=== PATIENT | female | born 1995 | race Caucasian/White ===

== ENCOUNTER 2019-06-05 09:46 | Observation (INO) | payer OTHER ==
[2019-06-05] MEDS ORDERED: NORMAL SALINE 1000 ML 1,000 ML IV ONE ×2 (10:10→11:47)
[2019-06-05] MEDS ORDERED: ACETAMINOPHEN 325 MG TABLET PO ONE (10:10)
[2019-06-05] MEDS ORDERED: ONDANSETRON HCL INJ/PF 4 MG/2 ML SDV IV ONE (10:11)
--- NOTE | 2019-06-05 10:14 | ER Document Report ---
ED Medical Screen (RME) - General Chief Complaint: Flu Symptoms Stated Complaint: FLU LIKE SYMPTOMS Time Seen by Provider: 06/05/19 10:06 Notes: HPI: 23-year-old female presenting to the emergency department for evaluation of flulike symptoms that began 4 days ago. Has had consistent fevers above 101. Reports nasal congestion and cough that is mildly productive had an episode of vomiting today. Patient states she feels generally weak with generalized myalgia and feels "like I am going to pass out". No chest pain. No shortness of breath. No abdominal pain. No dysuria. I have greeted and performed a rapid initial assessment of this patient. A comprehensive ED assessment and evaluation of the patient, analysis of test results and completion of the medical decision making process will be conducted by additional ED providers PHYSICAL EXAMINATION: GENERAL: Slightly ill-appearing, well-nourished and in no acute distress. HEAD: Atraumatic, normocephalic. EYES: sclera anicteric, conjunctiva are normal. ENT: Moist mucous membranes. No pharyngeal erythema NECK: Normal range of motion LUNGS: Normal work of breathing, lung sounds are clear to auscultation HEART: 2+ radial pulses bilaterally, mild tachycardia ABD: limited by positioning for exam in triage. EXTREMITIES: no pitting or edema. No cyanosis. NEUROLOGICAL: No focal neurological deficits. Moves all extremities spontaneously and on command. PSYCH: Normal mood, normal affect. SKIN: Warm, pale, normal turgor, no rashes or lesions noted. TRAVEL OUTSIDE OF THE [place] IN LAST 30 DAYS: No - Related Data Allergies/Adverse Reactions: cephalexin [From Keflex] Allergy (Verified 06/05/19 10:06) Cephalosporins Allergy (Verified 06/05/19 10:06) Penicillins Allergy (Verified 06/05/19 10:06) Physical Exam - Vital signs Vitals: Temp Pulse Resp BP Pulse Ox 100.9 F H 120 H 22 H 136/75 H 97 06/05/19 09:57 06/05/19 09:57 06/05/19 09:57 06/05/19 09:57 06/05/19 09:57 Course - Vital Signs Vital signs: Temp Pulse Resp BP Pulse Ox 100.9 F H 120 H 22 H 136/75 H 97 06/05/19 09:57 06/05/19 09:57 06/05/19 09:57 06/05/19 09:57 06/05/19 09:57
--- NOTE | 2019-06-05 10:48 | RADIOLOGY REPORT (SQ) ---
EXAM DESCRIPTION: CHEST 2 VIEWS COMPLETED DATE/TIME: 06/05/2019 10:40 am REASON FOR STUDY: cough COMPARISON: None. EXAM PARAMETERS: NUMBER OF VIEWS: two views TECHNIQUE: Digital Frontal and Lateral radiographic views of the chest acquired. RADIATION DOSE: NA LIMITATIONS: none FINDINGS: LUNGS AND PLEURA: Hazy opacification of the left upper lobe with associated air bronchogra ms. No pleural effusion or pneumothorax. MEDIASTINUM AND HILAR STRUCTURES: No masses or contour abnormalities. HEART AND VASCULAR STRUCTURES: Heart normal size. No evidence for failure. BONES: No acute findings. HARDWARE: None in the chest. OTHER: No other significant finding. IMPRESSION: Left upper lobe pneumonia. No significant effusion. TECHNICAL DOCUMENTATION: JOB ID: [id number] [employer]- All Rights Reserved Reading location - IP/workstation name: [email or web address]
[2019-06-05 11:01] LABS: A TYPE INFLUENZA AG NEGATIVE (NEGATIVE); B INFLUENZA AG NEGATIVE (NEGATIVE)
[2019-06-05 11:25] LABS: ABSOLUTE LYMPHOCYTES (AUTO) 1.1 10^3/uL (0.5-4.7); ABSOLUTE MONOCYTES (AUTO) 0.6 10^3/uL (0.1-1.4); ABSOLUTE NEUT (AUTO) 5.1 10^3/uL (1.7-8.2); BASOPHILS % (AUTO) 0.4 % (0-2); HEMATOCRIT 34.3 % (36.0-47.0); HEMOGLOBIN 11.7 g/dL (12.0-15.5); LYMPHOCYTES % (AUTO) 15.9 % (13-45); MEAN CORPUSCULAR HEMOGLOBIN 27.4 pg (27.0-33.4); MEAN CORPUSCULAR HGB CONC 34.3 g/dL (32.0-36.0); MEAN CORPUSCULAR VOLUME 80 fl (80-97); PLATELET COUNT 192 10^3/uL (150-450); RED BLOOD COUNT 4.28 10^6/uL (3.72-5.28); RED CELL DISTRIBUTION WIDTH 12.7 % (11.5-14.0); SEGMENTED NEUTROPHILS % (AUTO) 74.7 % (42-78); TOTAL CELLS COUNTED % (AUTO) 100 %; WHITE BLOOD COUNT 6.8 10^3/uL (4.0-10.5)
[2019-06-05] MEDS ORDERED: LEVOFLOXACIN 750 MG/D5W RTU 750 MG/150 ML RTUPB IV ONE (11:46)
[2019-06-05 11:51] LABS: ALBUMIN 4.2 g/dL (3.5-5.0); ALKALINE PHOSPHATASE 73 U/L (38-126); ANION GAP 15 (5-19); ASPARTATE AMINO TRANSFERASE 28 U/L (14-36); BILIRUBIN,DIRECT 0.3 mg/dL (0.0-0.4); BILIRUBIN,TOTAL 0.6 mg/dL (0.2-1.3); BLOOD UREA NITROGEN 8 mg/dL (7-20); CALCIUM 8.8 mg/dL (8.4-10.2); CARBON DIOXIDE 21 mmol/L (22-30); CHLORIDE 100 mmol/L (98-107); GLUCOSE 119 mg/dL (75-110); POTASSIUM 3.3 mmol/L (3.6-5.0); TOTAL PROTEIN 7.9 g/dL (6.3-8.2)
[2019-06-05] MEDS ORDERED: POTASSI CL 20 MEQ/50 ML RIDER 20 MEQ/50 ML RTUPB IV ONE (12:11)
--- NOTE | 2019-06-05 13:32 | RADIOLOGY REPORT (SQ) ---
EXAM DESCRIPTION: CT CHEST WITH COMPLETED DATE/TIME: 06/05/2019 1:20 pm REASON FOR STUDY: left upper lobe infiltrate COMPARISON: Two-view chest 06/05/2019 TECHNIQUE: CT scan of the chest performed using helical scanning technique with dynamic intravenous contrast injection. Images reviewed with lung, soft tissue and bone windows. Reconstructed coronal and sagittal MPR and MIP images reviewed. All images stored on PACS. All CT scanners at this facility use dose modulation, iterative reconstruction, and/or weight based d osing when appropriate to reduce radiation dose to as low as reasonably achievable (ALARA). [facility]: Dose Right [facility]: CareDose [facility]: Dose Right [facility]: Teradose 4D [facility]: Nipendo CONTRAST TYPE AND DOSE: 80 mL of IV Omnipaque 350- low osmolar. RENAL FUNCTION: Creatinine 0.9 RADIATION DOSE: 19.6 mGy . LIMITATIONS: None. FINDINGS: LUNGS AND PLEURA: Dense consolidation left upper lobe worrisome for pneumonia. No pleural effusions. No pneumothorax. Airways are patent. HILAR AND MEDIASTINAL STRUCTURES: No identified masses or abnormal nodes. HEART AND VASCULAR STRUCTURES: No aneurysm or dissection. No central pulmonary emboli. No pericardi al effusion. HARDWARE: None in the chest. UPPER ABDOMEN: Fatty liver with low attenuation THYROID AND OTHER SOFT TISSUES: No masses. No adenopathy. BONES: No significant finding. OTHER: No other significant finding. IMPRESSION: Dense consolidation left upper lobe worrisome for pneumonia. No pleural effusion. No p neumothorax. No endobronchial lesion. TECHNICAL DOCUMENTATION: JOB ID: [id number] Quality ID # [id number]: Final reports with documentation of one or more dose reduction techniques (e.g., Au tomated exposure control, adjustment of the mA and/or kV according to patient size, use of iterative reconstruction technique) 2010 [employer]- All Rights Reserved Reading location - IP/workstation name: [email or web address]
[2019-06-05] MEDS ORDERED: AZITHROMYCIN INJ 500 MG VIAL IV ONE (14:11)
--- NOTE | 2019-06-05 15:41 | PDOC H&P ---
History of Present Illness Patient complains of: cough, fever History of Present Illness: GERALDO FITCH is a 23 year old female with no significant past medical history aside from fibromyalgia and PCOS who presented with flulike symptoms. Patient says that she started having colds, minimally productive cough, and deidre lgia in the past 4 days. She says that this was associated with nausea and a few episodes of nonbilious, nonbloody vomiting. She denies diarrhea. She says she did have a fever and had a temperature of 103 earlier today. She also reported of increasing shortness of breath and dizziness. In the ER, work-up was remarkable for left upper lobe consolidation. Flu testing was negative. Patient denies prior history of tuberculosis or exposure to TB. Denies recent travel outside of [place]. Denies recent sick contacts. Denies smoking, alcohol drinking or recreational drug use. She says she had history of a viral infection and had respiratory issues back in 2018 and was admitted at [facility] in [place], [place] for several days. She is not able to recall the details of the course but recalls that she was told was positive for EBV. Past Medical History Cardiac Medical History: Reports: None Pulmonary Medical History: Reports: None Past Surgical History Past Surgical History: Reports: Appendectomy, Tonsillectomy Social History Smoking Status: Unknown if Ever Smoked Family History Parental Family History Reviewed: Yes - no premature CAD Children Family History Reviewed: No Sibling(s) Family History Reviewed.: No Medication/Allergy Home Medications: No Home Medications 06/05/19 Allergies/Adverse Reactions: cephalexin [From Keflex] Allergy (Verified 06/05/19 10:06) Cephalosporins Allergy (Verified 06/05/19 10:06) Penicillins Allergy (Verified 06/05/19 10:06) Review of Systems All systems: reviewed and no additional remarkable complaints except as stated - As mentioned in HPI Physical Exam Vital Signs: Temp Pulse Resp BP Pulse Ox 100.9 F H 120 H 22 H 136/75 H 98 06/05/19 09:57 06/05/19 09:57 06/05/19 09:57 06/05/19 09:57 06/05/19 14:11 Intake & Output 06/04/19 06/05/19 06/06/19 06:59 06:59 06:59 Intake Total 2150 Balance 2150 Weight 330 lb General appearance: PRESENT: no acute distress, well-developed, well-nourished Head exam: PRESENT: atraumatic, normocephalic Eye exam: PRESENT: conjunctiva pink, EOMI, PERRLA. ABSENT: scleral icterus Ear exam: PRESENT: normal external ear exam Mouth exam: PRESENT: moist, tongue midline Neck exam: ABSENT: carotid bruit, JVD, lymphadenopathy, thyromegaly Respiratory exam: PRESENT: rales, rhonchi. ABSENT: wheezes Cardiovascular exam: PRESENT: RRR. ABSENT: diastolic murmur, rubs, systolic murmur Pulses: PRESENT: normal dorsalis pedis pul GI/Abdominal exam: PRESENT: normal bowel sounds, soft. ABSENT: distended, guarding, mass, organolmegaly, rebound, tenderness Rectal exam: PRESENT: deferred Neurological exam: PRESENT: alert, awake, oriented to person, oriented to place, oriented to time, oriented to situation, CN II-XII grossly intact. ABSENT: motor sensory deficit Results Laboratory Results: 06/05/19 10:55 06/05/19 10:55 06/05/19 06/05/19 06/05/19 10:55 10:55 10:55 WBC 6.8 RBC 4.28 Hgb 11.7 L Hct 34.3 L MCV 80 MCH 27.4 MCHC 34.3 RDW 12.7 Plt Count 192 Seg Neutrophils % 74.7 Sodium 136.1 L Potassium 3.3 L Chloride 100 Carbon Dioxide 21 L Anion Gap 15 BUN 8 Creatinine 0.90 Est GFR ( Amer) > 60 Glucose 119 H Lactic Acid 1.1 Calcium 8.8 Total Bilirubin 0.6 AST 28 Alkaline Phosphatase 73 Total Protein 7.9 Albumin 4.2 Impressions: Chest X-Ray 06/05/19 10:10 IMPRESSION: Left upper lobe pneumonia. No significant effusion. Chest CT 06/05/19 12:12 IMPRESSION: Dense consolidation left upper lobe worrisome for pneumonia. No pleural effusion. No pneumothorax. No endobronchial lesion. Assessment and Plan - Diagnosis (1) Left upper lobe pneumonia Is this a current diagnosis for this admission?: Yes Plan: Likely community-acquired pneumonia. Will send for sputum culture. No identifiable risk factors for tuberculosis but will order a sputum AFB and TB Gold as well due to upper lobe location of the consolidation. Her father says she developed significant hives from penicillins and cephalosporins before. Will continue patient on IV levofloxacin. Request records of hospitalization in [facility] in [place]. (2) Hypokalemia Is this a current diagnosis for this admission?: Yes Plan: Replace Potassium. - Time Time Spent with patient: 25-34 minutes
[2019-06-05] MEDS: NORMAL SALINE 1000 ML 1,000 ML IV PRN (15:51)
[2019-06-05] MEDS ORDERED: POTASSIUM CHLORIDE 10 MEQ TABLET.ER PO ONE (16:00)
[2019-06-05] MEDS: IPRATROPIUM/ALBUTEROL 0.5-2.5 MG/3 ML AMPUL NEB SCH ×3 (16:09→20:37)
[2019-06-05] MEDS: ACETAMINOPHEN 325 MG TABLET PO PRN (18:45)
[2019-06-05] MEDS ORDERED: INFLUENZA QUAD (6MOS+) 2019-20 VAC 0.5 ML SYR IM ONE (19:21)
[2019-06-05] MEDS: ACETYLCYSTEINE 20% SOLN 800 MG/4 ML VIAL.NEB NEB SCH (20:37)
[2019-06-05] MEDS: HEPARIN SOD (PORCINE) 5,000 UNIT/ML 1 ML VIAL SUBCUT SCH (21:15)
--- NOTE | 2019-06-05 21:51 | EKG REPORT ---
SEVERITY:- NORMAL ECG - SINUS RHYTHM : Confirmed by: Carmina Ly MD 05-Jun-2019 21:51:02
[2019-06-05] MEDS ORDERED: ACETYLCYSTEINE 20% SOLN 800 MG/4 ML VIAL.NEB NEB SCH (22:00)
[2019-06-05] MEDS ORDERED: KETOROLAC TROMETHAMINE INJ/PF 30 MG/1 ML SDV ONE (22:41)
[2019-06-05] MEDS ORDERED: KETOROLAC TROMETHAMINE INJ/PF 30 MG/1 ML SDV IV PRN (22:43)
[2019-06-06] MEDS: NORMAL SALINE 1000 ML 1,000 ML IV PRN ×3 (00:41→19:54)
[2019-06-06] MEDS: ACETAMINOPHEN 325 MG TABLET PO PRN ×3 (00:41→19:53)
[2019-06-06] MEDS: ONDANSETRON HCL INJ/PF 4 MG/2 ML SDV IV PRN (00:42)
[2019-06-06 02:19] LABS: APPEARANCE,URINE CLEAR; BILIRUBIN,URINE NEGATIVE (NEGATIVE); COLOR,URINE YELLOW; GLUCOSE, URINE NEGATIVE (NEGATIVE); KETONES,URINE NEGATIVE (NEGATIVE); LEUKOCYTE ESTERASE,URINE TRACE (NEGATIVE); NITRITE,URINE NEGATIVE (NEGATIVE); PROTEIN,URINE NEGATIVE (NEGATIVE); URINE SPECIFIC GRAVITY 1.008; UROBILINOGEN,URINE NEGATIVE mg/dL (<2.0)
[2019-06-06] MEDS: IPRATROPIUM/ALBUTEROL 0.5-2.5 MG/3 ML AMPUL NEB SCH ×4 (02:52→19:48)
[2019-06-06] MEDS: HEPARIN SOD (PORCINE) 5,000 UNIT/ML 1 ML VIAL SUBCUT SCH ×3 (05:11→21:08)
[2019-06-06] MEDS ORDERED: ACETYLCYSTEINE 20% SOLN 800 MG/4 ML VIAL.NEB NEB SCH (08:00)
[2019-06-06] MEDS: ACETYLCYSTEINE 20% SOLN 800 MG/4 ML VIAL.NEB NEB SCH ×2 (08:03→19:48)
[2019-06-06 08:33] LABS: ABSOLUTE LYMPHOCYTES (AUTO) 0.7 10^3/uL (0.5-4.7); ABSOLUTE MONOCYTES (AUTO) 0.3 10^3/uL (0.1-1.4); ABSOLUTE NEUT (AUTO) 2.1 10^3/uL (1.7-8.2); BASOPHILS % (AUTO) 0.4 % (0-2); HEMATOCRIT 30.6 % (36.0-47.0); HEMOGLOBIN 10.5 g/dL (12.0-15.5); LYMPHOCYTES % (AUTO) 21.9 % (13-45); MEAN CORPUSCULAR HEMOGLOBIN 27.5 pg (27.0-33.4); MEAN CORPUSCULAR HGB CONC 34.1 g/dL (32.0-36.0); MEAN CORPUSCULAR VOLUME 81 fl (80-97); MONOCYTES % (AUTO) 10.9 % (3-13); PLATELET COUNT 146 10^3/uL (150-450); RED CELL DISTRIBUTION WIDTH 13.3 % (11.5-14.0); SEGMENTED NEUTROPHILS % (AUTO) 66.8 % (42-78); TOTAL CELLS COUNTED % (AUTO) 100 %; WHITE BLOOD COUNT 3.1 10^3/uL (4.0-10.5)
[2019-06-06 08:44] LABS: ANION GAP 11 (5-19); BLOOD UREA NITROGEN 6 mg/dL (7-20); CALCIUM 8.3 mg/dL (8.4-10.2); CARBON DIOXIDE 23 mmol/L (22-30); CHLORIDE 104 mmol/L (98-107); GLUCOSE 115 mg/dL (75-110); POTASSIUM 3.7 mmol/L (3.6-5.0)
[2019-06-06] MEDS: LEVOFLOXACIN 750 MG/D5W RTU 750 MG/150 ML RTUPB IV SCH (09:37)
--- NOTE | 2019-06-06 15:27 | ER Document Report ---
Entered by CAREN LOPEZ SCRIBE 06/05/19 1146 Acting as scribe for:CHANELLE MAZA MD ED Respiratory Problem - General Chief Complaint: Flu Symptoms Stated Complaint: FLU LIKE SYMPTOMS Time Seen by Provider: 06/05/19 10:06 TRAVEL OUTSIDE OF THE [place] IN LAST 30 DAYS: No - Related Data Allergies/Adverse Reactions: cephalexin [From Keflex] Allergy (Verified 06/05/19 10:06) Cephalosporins Allergy (Verified 06/05/19 10:06) Penicillins Allergy (Verified 06/05/19 10:06) Past Medical History - General Information source: Patient - Social History Smoking Status: Unknown if Ever Smoked Family History: Reviewed & Not Pertinent Patient has suicidal ideation: No Patient has homicidal ideation: No Past Surgical History: Reports: Hx Appendectomy, Hx Tonsillectomy Review of Systems - Review of Systems Constitutional: See HPI, Fever EENT: See HPI. denies: Ear pain Cardiovascular: denies: Chest pain Respiratory: See HPI, Cough, Sputum, Wheezing. denies: Hurts to breathe, Short of breath Gastrointestinal: denies: Abdominal pain Genitourinary: denies: Dysuria Female Genitourinary: No symptoms reported Musculoskeletal: Muscle pain. denies: See HPI Skin: No symptoms reported Hematologic/Lymphatic: No symptoms reported Neurological/Psychological: No symptoms reported -: Yes All other systems reviewed and negative Physical Exam - Vital signs Vitals: Temp Pulse Resp BP Pulse Ox 100.9 F H 120 H 22 H 136/75 H 97 06/05/19 09:57 06/05/19 09:57 06/05/19 09:57 06/05/19 09:57 06/05/19 09:57 Interpretation: Normal - General General appearance: Appears well, Alert - HEENT Head: Normocephalic, Atraumatic Eyes: Normal Pupils: PERRL - Respiratory Respiratory status: No respiratory distress Chest status: Nontender Breath sounds: Normal Chest palpation: Normal - Cardiovascular Rhythm: Regular Heart sounds: Normal auscultation Murmur: No - Abdominal Inspection: Normal Distension: No distension Bowel sounds: Normal Tenderness: Nontender Organomegaly: No organomegaly - Back Back: Normal, Nontender - Extremities General upper extremity: Normal inspection, Nontender, Normal color, Normal ROM, Normal temperature General lower extremity: Normal inspection, Nontender, Normal color, Normal ROM, Normal temperature, Normal weight bearing. No: Kyle's sign - Neurological Neuro grossly intact: Yes Cognition: Normal Orientation: AAOx4 [place] Coma Scale Eye Opening: Spontaneous [place] Coma Scale Verbal: Oriented [place] Coma Scale Motor: Obeys Commands [place] Coma Scale Total: 15 Speech: Normal Motor strength normal: LUE, RUE, LLE, RLE Sensory: Normal - Psychological Associated symptoms: Normal affect, Normal mood - Skin Skin Temperature: Warm Skin Moisture: Dry Skin Color: Normal Course - Re-evaluation Re-evalutation: 06/05/19 14:28 Patient states she is feels better now after having IV fluids and IV antibiotics. Zulema with patient results of her CT scan which confirmed that there is a consolidated pneumonic process in her left upper lung. No other acute problems seen. Discussed with patient the need for hospitalization and they were agreeable to be admitted to our hospital. I spoke with Dr. Canada about the admission who is has accepted patient. - Vital Signs Vital signs: Temp Pulse Resp BP Pulse Ox 98.9 F 85 18 131/89 H 99 06/07/19 01:17 06/07/19 02:52 06/07/19 02:52 06/07/19 01:17 06/07/19 02:52 - Laboratory Result Diagrams: 06/06/19 07:51 06/06/19 07:51 Laboratory results interpreted by me: 06/05/19 06/05/19 10:55 10:55 Hgb 11.7 L Hct 34.3 L Sodium 136.1 L Potassium 3.3 L Carbon Dioxide 21 L Glucose 119 H - Diagnostic Test Radiology reviewed: Image reviewed, Reports reviewed Radiology results interpreted by me: 06/05/19 14:32 CT scan shows consolidated pneumonic infiltrate in the left upper lung. X-ray d isclosed the same diagnosis of a pneumonia infiltrate in the left upper lung. - EKG Interpretation by Me Additional EKG results interpreted by me: 06/05/19 16:06 Twelve-lead EKG shows normal sinus rhythm rate of [address]-T wave changes. Discharge - Discharge Clinical Impression: Pneumonia, Hypokalemia Condition: Fair Disposition: ADMITTED INPATIENT Admitting Provider: Nancie (Hospitalist) Unit Admitted: Medical Floor I personally performed the services described in the documentation, reviewed and edited the documentation which was dictated to the scribe in my presence, and it accurately records my words and actions.
[2019-06-06] MEDS ORDERED: SODIUM CHLORIDE NASAL SPRAY 44 ML NASL PRN (20:11)
[2019-06-06] MEDS ORDERED: GUAIFENESIN 600 MG TABLET.SA PO SCH (20:30)
--- NOTE | 2019-06-06 21:44 | PDOC PROGRESS REPORT ---
Subjective Progress Note for:: 06/06/19 Subjective:: Patient reports that despite nebulizer treatments her throat is very irritated and feels dry and scratchy. She continues to cough. Cough is still minimally productive. Chest physiotherapy causes increased discomfort. Does not really feel much better than yesterday at this point. Reason For Visit: LEFT UPPER LOBE CONSOLIDATION PNEUMONIA Physical Exam Vital Signs: Temp Pulse Resp BP Pulse Ox 99.0 F 104 H 18 95/78 L 97 06/06/19 20:52 06/06/19 19:49 06/06/19 19:49 06/06/19 15:10 06/06/19 19:49 Intake & Output 06/05/19 06/06/19 06/07/19 06:59 06:59 06:59 Intake Total 5883 3560 Output Total 800 Balance 5883 2760 Weight 149.68 kg General appearance: PRESENT: cooperative, mild distress, morbidly obese, well- developed Head exam: PRESENT: atraumatic, normocephalic Mouth exam: PRESENT: moist, tongue midline Respiratory exam: PRESENT: rhonchi - In the left, symmetrical, tachypnea. ABSENT: accessory muscle use, rales, wheezes Cardiovascular exam: PRESENT: RRR, +S1, +S2 GI/Abdominal exam: PRESENT: normal bowel sounds, soft. ABSENT: distended, guarding, tenderness Rectal exam: PRESENT: deferred Gentrourinary exam: ABSENT: indwelling catheter Neurological exam: PRESENT: alert, awake, oriented to person, oriented to place, oriented to time, oriented to situation, CN II-XII grossly intact Psychiatric exam: PRESENT: flat affect. ABSENT: agitated, anxious Focused psych exam: ABSENT: delusional, restlessness Skin exam: PRESENT: dry, normal color, warm. ABSENT: rash Results Laboratory Results: 06/06/19 07:51 06/06/19 07:51 06/05/19 06/06/19 06/06/19 21:02 01:50 07:51 WBC 3.1 L RBC 3.80 Hgb 10.5 L Hct 30.6 L MCV 81 MCH 27.5 MCHC 34.1 RDW 13.3 Plt Count 146 L Seg Neutrophils % 66.8 Sodium Potassium Chloride Carbon Dioxide Anion Gap BUN Creatinine Est GFR ( Amer) Glucose Lactic Acid 1.3 Calcium Urine Color YELLOW Urine Appearance CLEAR Urine pH 6.0 Ur Specific [place] 1.008 Urine Protein NEGATIVE Urine Glucose (UA) NEGATIVE Urine Ketones NEGATIVE Urine Blood SMALL H Urine Nitrite NEGATIVE Ur Leukocyte Esterase TRACE H Urine WBC (Auto) 2 Urine RBC (Auto) 0 06/06/19 07:51 WBC RBC Hgb Hct MCV MCH MCHC RDW Plt Count Seg Neutrophils % Sodium 138.3 Potassium 3.7 Chloride 104 Carbon Dioxide 23 Anion Gap 11 BUN 6 L Creatinine 0.67 Est GFR ( Amer) > 60 Glucose 115 H Lactic Acid Calcium 8.3 L Urine Color Urine Appearance Urine pH Ur Specific [place] Urine Protein Urine Glucose (UA) Urine Ketones Urine Blood Urine Nitrite Ur Leukocyte Esterase Urine WBC (Auto) Urine RBC (Auto) Impressions: Chest X-Ray 06/05/19 10:10 IMPRESSION: Left upper lobe pneumonia. No significant effusion. Chest CT 06/05/19 12:12 IMPRESSION: Dense consolidation left upper lobe worrisome for pneumonia. No pleural effusion. No pneumothorax. No endobronchial lesion. Assessment and Plan - Diagnosis (1) Left upper lobe pneumonia Qualifiers: Pneumonia type: due to unspecified organism Qualified Code(s): J18.9 - Pneumonia, unspecified organism Is this a current diagnosis for this admission?: Yes Plan: Community-acquired pneumonia. Gram stain reveals gram-positive cocci in pairs and chains which is usually indicative of Streptococcus possibly pneumococcus. Await final identification and sensitivities. Continue levofloxacin and azithr omycin at this time. Because of her complaints of dryness and throat irritation I have increased the Mucinex and discontinued the Mucomyst to see if this helps. (2) Hypokalemia Is this a current diagnosis for this admission?: Yes Plan: Serum potassium is normal today after supplementation. We will recheck tomorrow to see if the patient requires daily supplementation. (3) Hypocalcemia Is this a current diagnosis for this admission?: Yes Plan: Serum calcium was slightly low. Will start calcium with vitamin D supplement once daily. - Time Time Spent with patient: 15-24 minutes Medications reviewed and adjusted accordingly: Yes Anticipated discharge: Home
[2019-06-07] MEDS: IPRATROPIUM/ALBUTEROL 0.5-2.5 MG/3 ML AMPUL NEB SCH ×3 (02:52→14:22)
[2019-06-07] MEDS: HEPARIN SOD (PORCINE) 5,000 UNIT/ML 1 ML VIAL SUBCUT SCH ×2 (05:03→13:03)
[2019-06-07] MEDS: NORMAL SALINE 1000 ML 1,000 ML IV PRN (05:43)
[2019-06-07] MEDS: ONDANSETRON HCL INJ/PF 4 MG/2 ML SDV IV PRN (06:27)
[2019-06-07] MEDS: LEVOFLOXACIN 750 MG/D5W RTU 750 MG/150 ML RTUPB IV SCH (09:33)
[2019-06-07] MEDS ORDERED: GUAIFENESIN 600 MG TABLET.SA PO SCH (10:00)
[2019-06-07] MEDS ORDERED: CALCIUM CARBONATE 250 MG/VITAMIN D3 125 UNIT TABLET PO SCH (10:00)
[2019-06-07 10:05] LABS: ANION GAP 11 (5-19); BLOOD UREA NITROGEN 3 mg/dL (7-20); CALCIUM 8.9 mg/dL (8.4-10.2); CARBON DIOXIDE 22 mmol/L (22-30); CHLORIDE 104 mmol/L (98-107); GLUCOSE 119 mg/dL (75-110); POTASSIUM 3.9 mmol/L (3.6-5.0)
--- NOTE | 2019-06-07 14:03 | PDOC DISCHARGE SUMMARY ---
Impression - Admit/DC Date/PCP Admission Date/Primary Care Provider: 06/05/19 15:25 Discharge Date: 06/07/19 - Discharge Diagnosis (1) Left upper lobe pneumonia Is this a current diagnosis for this admission?: Yes (2) Hypokalemia Is this a current diagnosis for this admission?: Yes (3) Hypocalcemia Is this a current diagnosis for this admission?: Yes - Assessment Summary: Patient with community-acquired pneumonia. Responded very well to levofloxacin therapy as well as mucolytic's. - Additional Information Resuscitation Status: Full Code Discharge Diet: As Tolerated Discharge Activity: Activity As Tolerated Referrals: RUPALI GUZMAN MD [ACTIVE STAFF] - 06/13/19 2:00 pm (PLEASE BRING ID AND INSURANCE INFORMATION ) Prescriptions: Levofloxacin [Levaquin 750 mg Tablet] 750 mg PO DAILY 8 Days #8 tab Levofloxacin [Levaquin 750 mg Tablet] 750 mg PO DAILY 8 Days #8 tab Home Medications: Acetaminophen [Tylenol 325 mg Tablet] 650 mg PO Q6HP PRN tablet 06/07/19 Calcium Carbonate/Vitamin D3 [Os-Alf 250 mg with Vitamin D 125 Units] 1 tab PO DAILY tablet 06/07/19 Guaifenesin [Mucinex Sr 600 mg Tablet.sa] 1,200 mg PO BID tablet.sa 06/07/19 Levofloxacin [Levaquin 750 mg Tablet] 750 mg PO DAILY 8 Days #8 tab 06/07/19 Levofloxacin [Levaquin 750 mg Tablet] 750 mg PO DAILY 8 Days #8 tab 06/07/19 Sodium Chloride [[place]renora Nasal Booker 44 ml Bottle] 1 spray NASL QIDP PRN bottle 06/07/19 History of Present Illiness History of Present Illness: GERALDO FITCH is a 23 year old female with no significant past medical history aside from fibromyalgia and PCOS who presented with flulike symptoms. Patient says that she started having colds, minimally productive cough, and myalgia in the past 4 days. She says that this was associated with nausea and a few episodes of nonbilious, nonbloody vomiting. She denies diarrhea. She says she did have a fever and had a temperature of 103 earlier today. She also reported of increasing shortness of breath and dizziness. In the ER, work-up was remarkable for left upper lobe consolidation. Flu testing was negative. Patient denies prior history of tuberculosis or exposure to TB. Denies recent travel outside of [place]. Denies recent sick contacts. Denies smoking, alcohol drinking or recreational drug use. She says she had history of a viral infection and had respiratory issues back in [address] [facility] in [place], [place] for several days. She is not able to recall the details of the course but recalls that she was told was positive for EBV. Hospital Course Hospital Course: Uncomplicated hospital course. With antibiotic therapy, mucolytic's and chest physiotherapy she is feeling much better. She was never in need of oxygen supplementation. She will complete antibiotic therapy at home. Physical Exam Vital Signs: Temp Pulse Resp BP Pulse Ox 98.1 F 100 17 120/65 98 06/07/19 10:45 06/07/19 10:45 06/07/19 10:45 06/07/19 10:45 06/07/19 10:45 Intake & Output 06/06/19 06/07/19 06/08/19 06:59 06:59 06:59 Intake Total 5883 4942 150 Output Total 2850 Balance 5883 2092 150 Weight 149.68 kg 149.64 kg General appearance: PRESENT: no acute distress, cooperative, well-developed Respiratory exam: PRESENT: clear to auscultation kole, symmetrical, unlabored. ABSENT: rales, rhonchi, tachypnea, wheezes Cardiovascular exam: PRESENT: RRR, +S1, +S2 Results Laboratory Results: WBC 3.1 10^3/uL (4.0-10.5) L 06/06/19 07:51 RBC 3.80 10^6/uL (3.72-5.28) 06/06/19 07:51 Hgb 10.5 g/dL (12.0-15.5) L 06/06/19 07:51 Hct 30.6 % (36.0-47.0) L 06/06/19 07:51 MCV 81 fl (80-97) 06/06/19 07:51 MCH 27.5 pg (27.0-33.4) 06/06/19 07:51 MCHC 34.1 g/dL (32.0-36.0) 06/06/19 07:51 RDW 13.3 % (11.5-14.0) 06/06/19 07:51 Plt Count 146 10^3/uL (150-450) L 06/06/19 07:51 Lymph % (Auto) 21.9 % (13-45) 06/06/19 07:51 Rapides % (Auto) 10.9 % (3-13) 06/06/19 07:51 Eos % (Auto) 0.0 % (0-6) 06/06/19 07:51 Baso % (Auto) 0.4 % (0-2) 06/06/19 07:51 Absolute Neuts (auto) 2.1 10^3/uL (1.7-8.2) 06/06/19 07:51 Absolute Lymphs (auto) 0.7 10^3/uL (0.5-4.7) 06/06/19 07:51 Absolute Monos (auto) 0.3 10^3/uL (0.1-1.4) 06/06/19 07:51 Absolute Eos (auto) 0.0 10^3/uL (0.0-0.6) 06/06/19 07:51 Absolute Basos (auto) 0.0 10^3/uL (0.0-0.2) 06/06/19 07:51 Seg Neutrophils % 66.8 % (42-78) 06/06/19 07:51 Sodium 137.0 mmol/L (137-145) 06/07/19 09:31 Potassium 3.9 mmol/L (3.6-5.0) 06/07/19 09:31 Chloride 104 mmol/L (98-107) 06/07/19 09:31 Carbon Dioxide 22 mmol/L (22-30) 06/07/19 09:31 Anion Gap 11 (5-19) 06/07/19 09:31 BUN 3 mg/dL (7-20) L 06/07/19 09:31 Creatinine 0.62 mg/dL (0.52-1.25) 06/07/19 09:31 Est GFR ( Amer) > 60 (>60) 06/07/19 09:31 Est GFR (MDRD) Non-Af > 60 (>60) 06/07/19 09:31 Glucose 119 mg/dL (75-110) H 06/07/19 09:31 Lactic Acid 1.3 mmol/L (0.7-2.1) 06/05/19 21:02 Calcium 8.9 mg/dL (8.4-10.2) 06/07/19 09:31 Magnesium 1.9 mg/dL (1.6-2.3) 06/05/19 10:55 Total Bilirubin 0.6 mg/dL (0.2-1.3) 06/05/19 10:55 Direct Bilirubin 0.3 mg/dL (0.0-0.4) 06/05/19 10:55 Neonat Total Bilirubin Not Reportable 06/05/19 10:55 Neonat Direct Bilirubin Not Reportable 06/05/19 10:55 Neonat Indirect Bili Not Reportable 06/05/19 10:55 AST 28 U/L (14-36) 06/05/19 10:55 ALT 20 U/L (<35) 06/05/19 10:55 Alkaline Phosphatase 73 U/L (38-126) 06/05/19 10:55 Total Protein 7.9 g/dL (6.3-8.2) 06/05/19 10:55 Albumin 4.2 g/dL (3.5-5.0) 06/05/19 10:55 Urine Color YELLOW 06/06/19 01:50 Urine Appearance CLEAR 06/06/19 01:50 Urine pH 6.0 (5.0-9.0) 06/06/19 01:50 Ur Specific Alicia 1.008 06/06/19 01:50 Urine Protein NEGATIVE mg/dL (NEGATIVE) 06/06/19 01:50 Urine Glucose (UA) NEGATIVE mg/dL (NEGATIVE) 06/06/19 01:50 Urine Ketones NEGATIVE mg/dL (NEGATIVE) 06/06/19 01:50 Urine Blood SMALL (NEGATIVE) H 06/06/19 01:50 Urine Nitrite NEGATIVE (NEGATIVE) 06/06/19 01:50 Urine Bilirubin NEGATIVE (NEGATIVE) 06/06/19 01:50 Urine Urobilinogen NEGATIVE mg/dL (<2.0) 06/06/19 01:50 Ur Leukocyte Esterase TRACE (NEGATIVE) H 06/06/19 01:50 Urine WBC (Auto) 2 /HPF 06/06/19 01:50 Urine RBC (Auto) 0 /HPF 06/06/19 01:50 Urine Bacteria (Auto) TRACE /HPF 06/06/19 01:50 Squamous Epi Cells Auto 1 /HPF 06/06/19 01:50 Urine Ascorbic Acid NEGATIVE (NEGATIVE) 06/06/19 01:50 Urine HCG, Qual NEGATIVE (NEGATIVE) 06/06/19 01:50 Monotest NEGATIVE (NEGATIVE) 06/05/19 10:55 HIV 1&2 Antibody NEGATIVE (NEGATIVE) 06/05/19 21:12 Influenza A (Rapid) NEGATIVE (NEGATIVE) 06/05/19 10:23 Influenza B (Rapid) NEGATIVE (NEGATIVE) 06/05/19 10:23 Group A Strep Rapid NEGATIVE (NEGATIVE) 06/05/19 15:30 AFB Smear Cancelled 06/06/19 14:20 Impressions: Chest X-Ray 06/05/19 10:10 IMPRESSION: Left upper lobe pneumonia. No significant effusion. Chest CT 06/05/19 12:12 IMPRESSION: Dense consolidation left upper lobe worrisome for pneumonia. No pleural effusion. No pneumothorax. No endobronchial lesion. Plan Health Concerns: Etiology of infection is unknown at this time. Plan of Treatment: Complete antibiotic therapy at home. Utilize incentive spirometer and mucolytic's. Follow-up with primary care provider in the next 7 days. Goals: Complete resolution of the infection Time Spent: Greater than 30 Minutes Stroke Is this a Stroke Patient?: No Acute Heart Failure - Is this a Heart Failure Patient?: No
[2019-06-07 14:17] VITALS: BP 130/81
== END 2019-06-07 14:50 | disposition home or self-care (01) ==
LOC: ER 09:46 → EH 15:25 → 4S 19:05
PROVIDERS: ADMIT Internal Medicine; ATTEND Internal Medicine
DX: J18.9 Pneumonia, unspecified organism (principal); E87.6 Hypokalemia; E83.51 Hypocalcemia; M79.7 Fibromyalgia; E28.2 Polycystic ovarian syndrome; E66.01 Morbid (severe) obesity due to excess calories; Z86.19 Personal history of other infectious and parasitic diseases; Z87.09 Personal history of other diseases of the respiratory system; Z90.49 Acquired absence of other specified parts of digestive tract; Z88.1 Allergy status to other antibiotic agents; Z88.0 Allergy status to penicillin; Z23 Encounter for immunization
CPT/HCPCS: 93005; 99285; 96361; 96375; 96365; 96366; 96367; 96368; 86480; 36415 ×3; 87040; 87070 ×2; 87205; 87206; 87116; 87880; 83605; 83735; 85025 ×2; 81025; 86308; 80048 ×2; 80053; 81001; 86701; 87015; 87804; 71046; 71260; 90686; 94799; 93010; 94667 ×2; 94640 ×3; 94668 ×2; J3490; J1644 ×2; J1885; J2405 ×3; J3480; J7030 ×3; J0456; J1956 ×3; J7620 ×3; G0378